=== PATIENT | female | born 1975 | race Caucasian/White ===

== ENCOUNTER → 2016-11-17 | Outpatient (CLI) | payer BC ==
--- NOTE | 2016-11-17 16:58 | KCIC ---
PROCEDURE MRI right midfoot dated 11/17/2016. HISTORY Lateral right foot pain. History plantar fasciitis. TECHNIQUE T1 and FSE fat saturated T2 weighted imaging performed to include the midfoot region. No contrast administered. COMPARISON None. FINDINGS Mild increased signal and thickening of the central slip plantar fascia just proximal to the calcaneal origin. No discrete tear or fluid collection. The Achilles tendon was not included on the study. Flexor and extensor tendons are intact. Mild thickening and increased signal of the peroneus longus and peroneus brevis. Small amount of fluid along the inferior peroneal retinaculum. Bone marrow signal is homogeneous. No marrow edema. Talar dome is intact. No ankle joint effusion or loose body. Lisfranc ligament is grossly intact. Mild hypertrophic change at the Lisfranc joints with minimal subchondral edema at the 2nd 3rd and 4th metatarsal bases. There is also mild degenerative change of the 1st MTP joint. No discrete fracture line. IMPRESSION - Mild plantar fasciitis. 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 - Mild patchy subchondral edema at the base of 2nd 3rd and 4th metatarsals with mild hypertrophic change of the Lisfranc joints. This could be reactive. Stress reaction is another consideration. Electronically signed by: Vance Bustillo (Nov 17, 2016 16:57:27)
== END | disposition home or self-care (01) ==
LOC: KCIC MRI 15:22
PROVIDERS: ATTEND Podiatrist Foot & Ankle Surgery
DX: M72.2 Plantar fascial fibromatosis (principal); M89.371 Hypertrophy of bone, right ankle and foot; R60.9 Edema, unspecified
CPT/HCPCS: 73718